=== PATIENT | male | born 1960 | race Caucasian/White ===

== ENCOUNTER 2016-08-07 10:55 | Outpatient (CLI) | payer BC, OTHER | END 2016-08-07 10:56 | disposition home or self-care (01) | DX: Z00.00 Encounter for general adult medical examination without abnormal findings (principal); E66.9 Obesity, unspecified; E78.5 Hyperlipidemia, unspecified; R73.01 Impaired fasting glucose; Z12.5 Encounter for screening for malignant neoplasm of prostate ==

== ENCOUNTER 2016-11-06 08:25 | Outpatient (CLI) | payer OTHER | END 2016-11-06 08:26 | disposition home or self-care (01) | DX: R74.8 Abnormal levels of other serum enzymes (principal); E11.9 Type 2 diabetes mellitus without complications; E78.5 Hyperlipidemia, unspecified ==

== ENCOUNTER 2017-01-28 15:49 | Outpatient (CLI) | payer OTHER | END 2017-01-28 15:50 | disposition home or self-care (01) | LOC: SC 15:49 | PROVIDERS: ATTEND Nurse Practitioner Family | DX: G47.33 Obstructive sleep apnea (adult) (pediatric) (principal) | CPT/HCPCS: 99212; 99214 ==

== ENCOUNTER 2017-08-15 08:00 | Outpatient (CLI) | payer OTHER ==
[2017-08-15 13:07] LABS: ALBUMIN 4.5 g/dL (3.2-5.5); ALBUMIN/GLOBULIN RATIO 1.6 (1.0-2.2); ALKALINE PHOSPHATASE 58 IU/L (42-121); ALT ALANINE AMINOTRANSFERASE 35 IU/L (10-60); AST ASPARTATE AMINOTRANSFERASE 27 IU/L (10-42); BILIRUBIN,TOTAL 0.3 mg/dL (0.2-1.0); BUN - BLOOD UREA NITROGEN 19 mg/dL (6-20); CALCIUM 9.4 mg/dL (8.5-10.3); CARBON DIOXIDE - CO2 23 mmol/L (21-32); CHLORIDE 104 mmol/L (101-111); CHOL/HDL RATIO 6.1 (<5.0); CHOLESTEROL 188 mg/dL; CREATININE 1.1 mg/dL (0.6-1.2); GFR - MDRD 69 (>89); GLUCOSE 118 mg/dL (70-100); HDL CHOLESTEROL 31 mg/dL; LDL CHOLESTEROL,CALCULATED 115 mg/dL; LDL/HDL RATIO 3.7 (<3.6); SODIUM 138 mmol/L (135-145); TOTAL PROTEIN 7.4 g/dL (6.7-8.2); VLDL CHOLESTEROL 42 mg/dL
[2017-08-15 13:36] LABS: HB2 TOTAL 16.9 g/dL; HEMOGLOBIN A1C 0.72 g/dL
== END 2017-08-15 08:01 | disposition home or self-care (01) ==
LOC: LAB.WCP 08:00
PROVIDERS: ATTEND Family Medicine
DX: R74.8 Abnormal levels of other serum enzymes (principal); E11.9 Type 2 diabetes mellitus without complications; E78.5 Hyperlipidemia, unspecified
CPT/HCPCS: 36415; 80053; 80061; 83036; 83721

== ENCOUNTER 2018-01-29 08:43 | Outpatient (CLI) | payer OTHER | END 2018-01-29 08:44 | disposition home or self-care (01) | LOC: SC 08:43 | PROVIDERS: ATTEND Nurse Practitioner Family | DX: G47.33 Obstructive sleep apnea (adult) (pediatric) (principal) | CPT/HCPCS: 99212; 99214 ==

== ENCOUNTER 2019-03-12 08:00 | Outpatient (CLI) | payer OTHER ==
[2019-03-12 12:00] LABS: BASOPHILS # (AUTO) 0.1 10^3/uL (0.0-0.1); BASOPHILS % (AUTO) 0.8 %; EOSINOPHILS # (AUTO) 0.1 10^3/uL (0.0-0.7); EOSINOPHILS % (AUTO) 1.7 %; HGB - HEMOGLOBIN 14.7 g/dL (14.0-18.0); LYMPHOCYTES # (AUTO) 3.5 10^3/uL (1.5-3.5); LYMPHOCYTES % (AUTO) 47.9 %; MEAN CORPUSCULAR HEMOGLOBIN 29.3 pg (27.0-31.0); MEAN CORPUSCULAR HGB CONC 33.3 g/dL (32.0-36.0); MEAN PLATELET VOLUME 10.3 fL (7.4-11.4); MONOCYTES # (AUTO) 0.5 10^3/uL (0.0-1.0); MONOCYTES % (AUTO) 6.3 %; NEUTROPHILS # (AUTO) 3.1 10^3/uL (1.5-6.6); NEUTROPHILS % (AUTO) 42.9 %; PLT - PLATELET COUNT 276 10^3/uL (130-450); RED BLOOD COUNT 5.02 10^6/uL (4.70-6.10); RED CELL DISTRIBUTION WIDTH 13.5 % (12.0-15.0); WHITE BLOOD COUNT 7.3 x10^3/uL (4.8-10.8)
[2019-03-12 12:10] LABS: ALBUMIN 4.1 g/dL (3.2-5.5); ALBUMIN/GLOBULIN RATIO 1.4 (1.0-2.2); ALKALINE PHOSPHATASE 52 IU/L (42-121); ALT ALANINE AMINOTRANSFERASE 51 IU/L (10-60); AST ASPARTATE AMINOTRANSFERASE 41 IU/L (10-42); BILIRUBIN,TOTAL 0.5 mg/dL (0.2-1.0); BUN - BLOOD UREA NITROGEN 17 mg/dL (6-20); CALCIUM 9.4 mg/dL (8.5-10.3); CARBON DIOXIDE - CO2 22 mmol/L (21-32); CHLORIDE 107 mmol/L (101-111); CHOL/HDL RATIO 5.7 (<5.0); CHOLESTEROL 183 mg/dL; GFR - MDRD 76 (>89); GLUCOSE 133 mg/dL (70-100); HDL CHOLESTEROL 32 mg/dL; LDL CHOLESTEROL,CALCULATED 116 mg/dL; LDL/HDL RATIO 3.6 (<3.6); SODIUM 140 mmol/L (135-145); TOTAL PROTEIN 7.1 g/dL (6.7-8.2); VLDL CHOLESTEROL 35 mg/dL
[2019-03-12 12:16] LABS: HB2 TOTAL 15.2 g/dL; HEMOGLOBIN A1C 0.73 g/dL; HEMOGLOBIN A1C % 6.5 % (4.6-6.2)
== END 2019-03-12 23:59 | disposition home or self-care (01) ==
LOC: LAB.N 08:00
PROVIDERS: ATTEND Family Medicine
DX: E11.9 Type 2 diabetes mellitus without complications (principal); E78.5 Hyperlipidemia, unspecified; R74.8 Abnormal levels of other serum enzymes; K21.9 Gastro-esophageal reflux disease without esophagitis
CPT/HCPCS: 36415; 80053; 80061; 83036; 83721; 84443; 85025

== ENCOUNTER 2019-03-17 08:51 | Outpatient (CLI) | payer OTHER ==
--- NOTE | 2019-03-17 09:40 | SLEEP CARE CONSULTATION ---
Information from patient questionnaire entered by Lilo Jauregui. I have reviewed and concur with the information entered by Lilo Jauregui. This document represents the service I personally performed and the decisions made by me, Emilee Escalante, RN, MSN, [employer]. History of Present Illness Previous diagnosis: Severe, Obstructive Sleep Apnea-Hypopnea Syndrome AHI: 59.6 Reason for CPAP/BiPAP follow up: annual Equipment type: CPAP Equipment obtained from: [facility] (having difficulty getting supplies so buying supplies online) Mask style: Nasal (Wisp) Mask brand: Respironics Backup mask available: Yes Last cushion change: December as unable to afford sooner CPAP Compliance Data - Data Reviewed with Patient Average duration of nightly device use: 7.7 Compliance rate %: 96.7 (180 days) Current pressure setting (cmH2O): 7-13 Humidity settin Average residual AHI: 1.9 Average large leak: 8 mins 57 secs Subjective Missed days of use due to: reports: travel (uses [employer] travel CPAP ), other Patient concerns: reports: nasal congestion (chronic but does not interfere with CPAP. / uses saline nasal spray as needed. ). denies: aerophagia, mask discomfort, air blowing in eyes, mask leak noise, condensation in mask/hose, dry mouth, nose, throat, epistaxis Observed to snore while using device: No (sleep separately) Current pressure setting perceived as: comfortable On therapy, patient: reports: sleeping better (cannot sleep without CPAP ), awakening more refreshed, being more awake and alert during the day, more rested overall ( but residual fatigue. ). denies: drowsiness while driving Initial [place] Sleepiness Scale score: 1 Current [place] Sleepiness Scale score: 3 Allergies and Home Medications Known drug allergies: Yes (penicillin) Allergy and home medication list: Ranitidine HCL 150mg tab one daily in the pm TUMS prn Review of Systems Review of systems same as previous: Yes Physical Exam Blood Pressure: 110/68 Cuff size: long Heart Rate: 88 O2 Saturation: 97 Height: 6 ft 2.5 in Weight (kg): 320 lb 3.2 oz Body Mass Index: 40.5 BMI Classification: Class 3 Impression and Plan 1. Obstructive Sleep Apnea-Hypopnea Syndrome, severe, with good treatment compliance and good apnea control. On CPAP therapy, the patient has better sleep quality and is more rested overall. He does have some residual fatigue and has had increased stress with changes at work. In addition, his weight has increased as well with stress. Both these factors can contribute fatigue as well as other medical conditions. He has appointment with his PCP this week and advised to discuss. I also discussed how continued weight gain could increase pressure requirements and advised to lose weight. He was advised to discuss a diet consultation with his PCP as well. His autoCPAP range should accommodate some weight loss. Symptoms to report for pressure adjustment discussed. 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 For his supply concerns, I discussed how his current insurance uses a different DME and I can transfer him. He agreed with plan. A transfer DWO will be completed. Patient advised to contact this office if further supply concerns. Patient's apnea severity and rationale for treatment to reduce apnea, improve sleep quality and reduce cardiovascular and cerebrovascular events was reviewed. * Continue autoCPAP pressure at 7-13 cmH2O * Transfer of care to [facility] ( patient now has [place] insurance) * CDL letter * Attempt to lose weight * Consider diet consultation. * Notify me if snoring with mask or feeling that the pressure is too much or too little * Return for follow up in 1 year , or sooner if concerns arise I spent 100% of this 33 minute visit face to face with the patient with greater than 50% of this was spent time counseling the patient and coordination of care.
[2019-03-17 09:41] VITALS: BP 110/68
== END 2019-03-17 08:52 | disposition home or self-care (01) ==
LOC: SC 08:51
PROVIDERS: ATTEND Nurse Practitioner Family
DX: G47.33 Obstructive sleep apnea (adult) (pediatric) (principal)
CPT/HCPCS: 99212; 99214

== ENCOUNTER 2019-05-04 08:51 | Outpatient (CLI) | payer OTHER ==
--- NOTE | 2019-05-04 12:37 | XRAY Report ---
Reason: GERD Procedure Date: 05/04/2019 Accession Number: [id number] / [id number] Procedure: FL - Esophogram CPT Code: FULL RESULT: EXAM: BARIUM ESOPHAGRAM EXAM DATE: 05/04/2019 11:00 AM. CLINICAL HISTORY: GERD. Chest pain COMPARISONS: XR CHEST PA AND LAT 09/25/2011 6:57 PM. TECHNIQUE: Routine double contrast esophagram. Fluoroscopy Time: 3 minutes 25 seconds. Number of Images: 18. FINDINGS: Swallowing Mechanism: Normal. No tracheal aspiration or penetration. Esophageal Motility: Normal peristaltic stripping wave. Mucosa: Normal. No ulcerations or masses. Gastroesophageal Junction: Normal. No hernia, stricture, or significant reflux. Other: A 13 mm barium tablet passes easily into the stomach. IMPRESSION: Normal barium esophagram. RADIA
== END 2019-05-04 08:52 | disposition home or self-care (01) ==
LOC: DI 08:51
PROVIDERS: ATTEND Family Medicine
DX: K21.9 Gastro-esophageal reflux disease without esophagitis (principal)
CPT/HCPCS: 74220

== ENCOUNTER 2019-10-12 14:20 | Emergency (ER) | payer OTHER ==
[2019-10-12 14:33] VITALS: BP 154/83
--- NOTE | 2019-10-12 14:48 | ED Physician Documentation ---
PD HPI SKIN - Stated complaint Stated Complaint: RT THUMB LAC - Chief complaint Chief Complaint: Laceration - History obtained from History obtained from: Patient (Pt was cutting vegetables with a clean knife and accidentally cut the tip of his right thumb. He washed it and held pressure at home but it continued to bleed for about 30 minutes so he presented to the ER. No other injuries. Reports normal sensation.) Review of Systems Constitutional: reports: Reviewed and negative Eyes: reports: Reviewed and negative Ears: reports: Reviewed and negative Nose: reports: Reviewed and negative Throat: reports: Reviewed and negative Cardiac: reports: Reviewed and negative Respiratory: reports: Reviewed and negative GI: reports: Reviewed and negative Skin: reports: Laceration (s) Musculoskeletal: reports: Reviewed and negative Neurologic: reports: Reviewed and negative PD PAST MEDICAL HISTORY - Allergies Allergies/Adverse Reactions: Allergies Allergy/AdvReac Type Severity Reaction Status Date / Time Penicillins Allergy Rash Verified 10/12/19 14:27 - Social History Does the pt smoke?: No Smoking Status: Never smoker Does the pt drink ETOH?: No Does the pt have substance abuse?: No - Immunizations Immunizations are current?: Yes - POLST Patient has POLST: No PD ED PE NORMAL - Vitals Vital signs reviewed: Yes - General General: Alert and oriented X 3, No acute distress, Well developed/nourished - HEENT HEENT: Atraumatic - Neck Neck: Supple, no meningeal sign - Cardiac Cardiac: RRR, No murmur, No gallop, No rub, Strong equal pulses - Respiratory Respiratory: No respiratory distress, Clear bilaterally - Abdomen Abdomen: Normal bowel sounds, Soft, Non tender, Non distended, No organomegaly - Derm Derm: Normal color, Warm and dry, Other (1/2 x 1/2 cm avulsion of the tip of the right thumbpad. Small vessles oozing. Sensation, color intact. 2+ radial pulses. ) Results - Vitals Vitals: Vital Signs - 24 hr 10/12/19 14:27 Temperature 36.7 C Heart Rate 95 Respiratory 16 Rate Blood Pressure 154/83 H O2 Saturation 96 Oxygen O2 Source Room air Procedures - Laceration (location) right thumb Wound type: Flap, Clean Neurovascular status: Sensory intact, Motor intact, Vascular intact Anesthesia: Lidocaine 1% Wound Preparation: Hibiclens, Irrigated copiously NS Skin layer closure: Nylon, Size #-0 - enter number (5), Sutures - enter # (3 vicryl) Other: Patient tolerated well, No complications, Dressing applied, Tetanus UTD Complexity: Simple PD MEDICAL DECISION MAKING - ED course Complexity details: re-evaluated patient, d/w patient ED course: Pt presentsed with small lac on the right thumb. The area was irrigated copiously. After informed verbal consent obtained the thumb was locally anesthetized with 1mnl of 1% lidocaine and the bleeding vessels were tied off with 3 #5.0 vicryl. A non-stick dressing was applied. Bleeding controlled. Home wound care instructions provided and return precautions discussed. Departure - Departure Disposition: Home, Self Care Clinical Impression: Laceration Condition: Good Instructions: ED Laceration Hand, ED Laceration Sure Close Comments: You sustained an avulsion of the tip of the right thumb. I placed dissolveable sutures to help stop the bleeding, but there is no skin to close the wound. The wound will heal from the bottom up. Keep clean and dry, soap and water is fine but do not soak. The sutures will dissolve in 10-14 days. If you have any swelling, redness, increased pain, or purulent drainage, return for evaluation. Discharge Date/Time: 10/12/19 15:08
== END 2019-10-12 15:15 | disposition home or self-care (01) ==
LOC: ED 14:20
DX: S61.011A Laceration without foreign body of right thumb without damage to nail, initial encounter (principal); W26.0XXA Contact with knife, initial encounter; Y93.G1 Activity, food preparation and clean up
CPT/HCPCS: 12001; 99281; 99284

== ENCOUNTER 2020-03-29 09:32 | Outpatient (CLI) | payer OTHER ==
--- NOTE | 2020-03-29 10:22 | SLEEP CARE CONSULTATION ---
Information from patient questionnaire entered by Aida Patton. I have reviewed and concur with the information entered by Aida Patton. This document represents the service I personally performed and the decisions made by , Tory Gould ARNP. History of Present Illness Service Date and Time: 03/29/2020 09 Previous diagnosis: Severe, Obstructive Sleep Apnea-Hypopnea Syndrome AHI: 59.6 Reason for follow up: annual (Last seen 03/2019) Equipment type: CPAP Mask style: Nasal (Wisp) Mask brand: [employer] Backup mask available: Yes (old mask) Last cushion change: 2.5+ months Prior sleep studies: Yes Year and Where: 2012 [facility] Type of Sleep Study: Polysomnography HPI additional information: JADEN ECHEVERRIA was diagnosed to have severe, AHI 59.6, obstructive sleep apnea- hypopnea syndrome and returned today for CPAP therapy annual follow-up. 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 CPAP Compliance Data - Data Reviewed with Patient Average duration of nightly device use: 7 hrs 41 mins Compliance rate %: 98.3 Current pressure setting (cmH2O): 7-13 Average residual AHI: 2.7 Central apnea: 0.0 Obstructive apnea: 0.5 Hypopnea: 2.1 Average large leak: 41 mins 12 secs Subjective Patient concerns: denies: aerophagia, mask discomfort, air blowing in eyes, mask leak noise, condensation in mask/hose, nasal congestion, dry mouth, nose, throat, epistaxis, other Observed to snore while using device: No Current pressure setting perceived as: comfortable On therapy, patient: reports: sleeping better, awakening more refreshed, being more awake and alert during the day, more rested overall. denies: drowsiness while driving Initial [place] Sleepiness Scale score: 3 (in 2013) Current [place] Sleepiness Scale score: 2 Allergies and Home Medications Drug allergies reviewed: Yes (penicillins) Home medication list reviewed: Yes (new medication for heartburn for last year) Review of Systems Review of systems same as previous: Yes (no changes) Physical Exam Heart Rate: 81 O2 Saturation: 95 Height: 6 ft 2 in Weight: 324 lb Body Mass Index: 41.5 BMI Classification: Morbidly Obese Impression and Plan 1. Obstructive Sleep Apnea-Hypopnea Syndrome, severe, with good treatment compliance and good apnea control. On CPAP therapy, the patient has better sleep quality and is more rested overall. DOT compliance letter was completed and copy given to patient along with a copy of his compliance information from download. Patient is not having any issues with his machine or mask. His is compliant and may follow up for his annual next year. Patient's apnea severity and rationale for treatment to reduce apnea, improve sleep quality and reduce cardiovascular and cerebrovascular events was reviewed. I also reviewed the benefit of consistent device use of CPAP for his gastric reflux. * Continue auto CPAP pressure at 7-13 cmH2O * Notify me if snoring with mask or feeling that the pressure is too much or too little * Attempt to lose weight * Call this office if any problems using CPAP * Return for follow up in 1 year, or sooner if concerns arise Visit Type: In Office Time Spent with Patient (minutes): 23 Provider Statement: I spent 100% of the Face to Face Visit with the patient with greater than 50% spent counseling the patient and coordination of care.
== END 2020-03-29 09:33 | disposition home or self-care (01) ==
LOC: SC 09:32
PROVIDERS: ATTEND Nurse Practitioner Family
DX: G47.33 Obstructive sleep apnea (adult) (pediatric) (principal); E66.01 Morbid (severe) obesity due to excess calories; Z68.41 Body mass index [BMI] 40.0-44.9, adult
CPT/HCPCS: 99212; 99213

== ENCOUNTER 2020-04-25 19:13 | Outpatient (CLI) | payer OTHER | END 2020-04-25 19:14 | disposition home or self-care (01) | LOC: COV 19:13 | PROVIDERS: ATTEND Family Medicine | DX: R05 Cough (principal); Z20.828 Contact with and (suspected) exposure to other viral communicable diseases; R53.83 Other fatigue; J02.9 Acute pharyngitis, unspecified; M79.10 Myalgia, unspecified site; R43.8 Other disturbances of smell and taste ==

== ENCOUNTER 2021-04-10 08:35 | Outpatient (CLI) | payer OTHER ==
[2021-04-10 09:10] VITALS: BP 153/83
--- NOTE | 2021-04-10 09:10 | SLEEP CARE CONSULTATION ---
Information from patient questionnaire entered by Loreta Pathak. I have reviewed and concur with the information entered by Loreta Pathak. This document represents the service I personally performed and the decisions made by , Tory Gould ARNP. History of Present Illness Service Date and Time: 04/10/2021 0835 Previous diagnosis: Severe, Obstructive Sleep Apnea-Hypopnea Syndrome AHI: 59.6 Reason for follow up: annual Equipment type: CPAP Equipment obtained from: Other (Patient is purchasing from [employer]) Mask style: Nasal (Wisp) Mask brand: Respironics Backup mask available: Yes (old mask) Last cushion change: last weekend Prior sleep studies: Yes Year and Where: 2012 [facility] Type of Sleep Study: Polysomnography HPI additional information: JADEN ECHEVERRIA was diagnosed to have severe, AHI 59.6, obstructive sleep apnea- hypopnea syndrome and returned today for CPAP therapy annual follow-up. Sleep Study - Results Type of Sleep Study: Polysomnography Prior sleep studies: Yes Year and Where: 2012 [facility] CPAP Compliance Data - Data Reviewed with Patient Average duration of nightly device use: 7 hours 44 minutes Compliance rate %: 95.6 Current pressure setting (cmH2O): 7-13 Humidity settin Average residual AHI: 2.1 Average large leak: 3 minutes 18 seconds Subjective Missed days of use due to: reports: travel (uses travel unit) Patient concerns: denies: aerophagia, mask discomfort, air blowing in eyes, mask leak noise, condensation in mask/hose, nasal congestion, dry mouth, nose, throat, epistaxis, other Observed to snore while using device: No Current pressure setting perceived as: comfortable On therapy, patient: reports: sleeping better, awakening more refreshed, being more awake and alert during the day, more rested overall, other (don't sleep if he doesn't use it). denies: drowsiness while driving Initial [place] Sleepiness Scale score: 3 (in 2013) Current [place] Sleepiness Scale score: 2 Allergies and Home Medications Home medication list reviewed: Yes Allergy and home medication list: Metformin HCI ER 750 mg Pioglitaozone HCI 15 mg Pantoprazole Review of Systems Review of systems same as previous: No (some high blood pressures, no meds yet) Physical Exam Blood Pressure: 153/83 Cuff size: wrist Heart Rate: 85 O2 Saturation: 97 Height: 6 ft 2 in Weight: 324 lb Body Mass Index: 41.5 BMI Classification: Morbidly Obese Impression and Plan 1. Obstructive Sleep Apnea-Hypopnea Syndrome, severe, with excellent treatment compliance and good apnea control. On CPAP therapy, the patient has better sleep quality and is more rested overall. He has no issues and is satisfied with current pressure settings. He has a Remstar from [employer] that he got in 2013. He heard about the recall and would like to update his device. He had been getting supplies from [employer] due to a high deductible, but he now has a different insurance that should cover a new device. He has used [employer] in the past. Patient denies any black particles seen in machine or hoses, any unusual odors coming from device. Patient has not experienced any physical symptoms such as upper airway irritation, headache, skin or eye irritation, asthma, nausea/vomiting, difficulty breathing or chest pain. Patient informed that they may use an inline CPAP filter that they can obtain online to reduce chance of any particles being inhaled or ingested. We discussed thoroughly the health risks of not using the CPAP versus continuing use with the filter in place. If patient is not able to sleep due to waking up choking, gasping for air or other respiratory distress that they may decide to continue using it until it is either replaced or repaired. Since the patients current machine is at least 5 years old the patient is opting to update their device with a device that is not on the recall. Patient has not been trying to lose weight this year. Patient was encouraged to lose weight for their overall health and to reduce apneas. Patient voiced understanding and agreement with plan. Patient's apnea severity and rationale for treatment to reduce apnea, improve sleep quality and reduce cardiovascular and cerebrovascular events was reviewed. I also reviewed the benefit of consistent device use of CPAP for gastric reflux. * Continue auto CPAP pressure at 7-13 cmH2O * Update device * Update supplies as needed * Notify me if snoring with mask or feeling that the pressure is too much or too little * Attempt to lose weight * Call this office if any problems using CPAP * Return for follow up one month after getting new device, or sooner if concerns arise Counseling Topics: Spare mask, Weight loss health impact Visit Type: In Office Time Spent with Patient (minutes): 24 Provider Statement: I spent 100% of the Face to Face Visit with the patient with greater than 50% spent counseling the patient and coordination of care.
== END 2021-04-10 08:36 | disposition home or self-care (01) ==
LOC: SC 08:35
PROVIDERS: ATTEND Nurse Practitioner Family
DX: G47.33 Obstructive sleep apnea (adult) (pediatric) (principal); E66.01 Morbid (severe) obesity due to excess calories; Z68.41 Body mass index [BMI] 40.0-44.9, adult
CPT/HCPCS: 99212; 99213

== ENCOUNTER 2022-08-27 11:21 | Outpatient (CLI) | payer MEDICAID ==
--- NOTE | 2022-08-27 12:02 | SLEEP CARE CONSULTATION ---
Information from patient questionnaire entered by Kristine Acharya. I have reviewed and concur with the information entered by Kritsine Acharya. This document represents the service I personally performed and the decisions made by , Tory Gould ARNP. History of Present Illness Service Date and Time: 08/27/2022 1121 Previous diagnosis: Severe, Obstructive Sleep Apnea-Hypopnea Syndrome AHI: 59.6 Reason for follow up: annual (LAST SEEN 04/2021) Equipment type: CPAP (Resmed Airsense 11; s/u 05/2021) Equipment obtained from: [employer] (getting supplies) Mask style: Nasal Mask brand: Resmed (N20) Backup mask available: Yes (old mask) Last cushion change: 2 + weeks Prior sleep studies: Yes Year and Where: 2012 [facility] Type of Sleep Study: Polysomnography HPI additional information: JADEN ECHEVERRIA was diagnosed to have severe, AHI 59.6, obstructive sleep apnea- hypopnea syndrome and returned today for CPAP therapy annual follow-up. Sleep Study - Results Type of Sleep Study: Polysomnography Prior sleep studies: Yes Year and Where: 2012 [facility] CPAP Compliance Data - Data Reviewed with Patient Average duration of nightly device use: 7 hours 46 minutes Compliance rate %: 99 (07/28/2022-08/26/2022; 179/180 days used) Current pressure setting (cmH2O): 7-13 Average residual AHI: 2.0 Central apnea: 0.1 Obstructive apnea: 1.3 Subjective Missed days of use due to: reports: illness (Covid in Jun/Jul) Patient concerns: denies: aerophagia, mask discomfort, air blowing in eyes, mask leak noise, condensation in mask/hose, nasal congestion, dry mouth, nose, throat, epistaxis Observed to snore while using device: No Current pressure setting perceived as: comfortable On therapy, patient: reports: sleeping better, awakening more refreshed, being more awake and alert during the day, more rested overall. denies: drowsiness while driving Initial [place] Sleepiness Scale score: 3 (in 2012) Current [place] Sleepiness Scale score: 3 (08/27/22) Allergies and Home Medications Drug allergies reviewed: Yes (pencillin) Home medication list reviewed: Yes (Metformin, Pioglitazone, Pantoprazole, Losartan) Review of Systems Review of systems same as previous: Yes (no changes) Physical Exam Vital signs obtained and entered by: KRISTINE Oshea MA Blood Pressure: 120/76 (LEFT ARM) Cuff size: regular Heart Rate: 88 O2 Saturation: 98 Height: 6 ft 2 in Weight: 341 lb 3.2 oz Body Mass Index: 43.8 BMI Classification: Morbidly Obese Impression and Plan 1. Obstructive Sleep Apnea-Hypopnea Syndrome, severe, with good treatment compliance and good apnea control. On CPAP therapy, the patient has better sleep quality and is more rested overall. Patient has a ResMed Airsense 11 that was set up in May 2021. He likes his device but did not come in for a compliance visit within the first 90 days. He states that he did not know he was supposed to have this compliance visit. He is definitely compliant and has been doing well with his Resmed device. Patient has significant improvement of their sleep apnea and is satisfied with current CPAP therapy. Patient denies problems with oral dryness, nasal congestion, epistaxis, skin irritation or aerophagia. Patient's apnea severity and rationale for treatment to reduce apnea, improve sleep quality and reduce cardiovascular and cerebrovascular ev ents was reviewed. I also reviewed the benefit of consistent device use of CPAP for gastric reflux. 2. Obesity, unspecified. Currently patients BMI is 43.8. Obesity increases the risk of apnea, CPAP pressure requirements and overall health risks especially cardiovascular and diabetes. Thus patient is advised to lose weight. * Continue auto CPAP pressure at 7-12 cmH2O * Update supplies * Notify me if snoring with mask or feeling that the pressure is too much or too little * Attempt to lose weight * Call this office if any problems using CPAP * Return for follow up in 1 year, or sooner if concerns arise Counseling Topics: Spare mask, Weight loss health impact Visit Type: In Office Time Spent with Patient (minutes): 22 Provider Statement: I spent 100% of the Face to Face Visit with the patient with greater than 50% spent counseling the patient and coordination of care.
[2022-08-27 12:03] VITALS: BP 120/76
== END 2022-08-27 11:22 | disposition home or self-care (01) ==
LOC: SC 11:21
PROVIDERS: ATTEND Nurse Practitioner Family
DX: G47.33 Obstructive sleep apnea (adult) (pediatric) (principal); E66.01 Morbid (severe) obesity due to excess calories; Z68.41 Body mass index [BMI] 40.0-44.9, adult
CPT/HCPCS: 99212; 99213

== ENCOUNTER 2023-04-28 15:57 | Outpatient (CLI) | payer MEDICAID ==
--- NOTE | 2023-04-28 17:57 | XRAY Report ---
PROCEDURE: Hips 2V BILAT INDICATIONS: HIP, JOINT PAIN RIGHT TECHNIQUE: AP view of the pelvis and one view of the left and one view of the right hips. COMPARISON: None. FINDINGS: Bones: No fractures or dislocations. Mild joint space narrowing of the bilateral hips. No suspiciou s bony lesions. Soft tissues: No suspicious soft tissue calcifications or masses. IMPRESSION: 1. No acute osseous abnormality. If there is high clinical suspicion for a radiographically occult fr acture, consider cross-sectional imaging for further evaluation. 2. Mild bilateral hip joint space narrowing. Reviewed by: Pedro Castano MD on 04/28/2023 5:56 PM PDT Approved by: Pedro Castano MD on 04/28/2023 5:56 PM PDT Station ID: [id number]
--- NOTE | 2023-04-28 17:59 | XRAY Report ---
PROCEDURE: Lumbar Spine 2 View INDICATIONS: HIP, JOINT PAIN RIGHT,BACK PAIN LUMBAR TECHNIQUE: 3 views of the lumbar spine were acquired. COMPARISON: None. FINDINGS: Bones: 5 [id number] vertebrae are present. There is normal bony alignment. No vertebral body compression fractures or traumatic subluxation. Vertebral body height and disc spaces are maintained. Mild multilevel facet arthropathy, notably at L4-5 and L5-S1. No suspicious bony lesions. Soft tissues: Overlying bowel gas pattern is normal. No suspicious soft tissue calcifications. IMPRESSION: 1. No acute fracture or traumatic subluxation of the lumbar spine. 2. Mild multilevel facet arthropathy, notably at L4-5 and L5-S1. Reviewed by: Pedro Castano MD on 04/28/2023 5:57 PM PDT Approved by: Pedro Castano MD on 04/28/2023 5:57 PM PDT Station ID: [id number]
--- NOTE | 2023-04-28 18:19 | XRAY Report ---
PROCEDURE: Thoracic Spine 3 View INDICATIONS: HIP, JOINT PAIN RIGHT,BACK PAIN LUMBAR, THROARCIC TECHNIQUE: 3 views of the thoracic spine were acquired. COMPARISON: None. FINDINGS: Bones: No acute fracture or genetic subluxation. Vertebral body height is maintained. Mild multilevel disc height loss. No suspicious bony lesions. 12 pairs of ribs are noted, and appear intact where v isualized. Soft tissues: No paravertebral stripe thickening. Basilar atelectasis. Normal mediastinal contour. IMPRESSION: 1.No acute fracture or traumatic subluxation. 2.Mild multilevel degenerative changes of the spine. Reviewed by: Pedro Castano MD on 04/28/2023 6:18 PM PDT Approved by: Pedro Castano MD on 04/28/2023 6:18 PM PDT Station ID: [id number]
== END 2023-04-28 15:58 | disposition home or self-care (01) ==
LOC: DI 15:57
PROVIDERS: ATTEND Internal Medicine
DX: M47.814 Spondylosis without myelopathy or radiculopathy, thoracic region (principal); M47.816 Spondylosis without myelopathy or radiculopathy, lumbar region; M47.817 Spondylosis without myelopathy or radiculopathy, lumbosacral region; M16.0 Bilateral primary osteoarthritis of hip

== ENCOUNTER 2023-05-04 14:57 | Outpatient (CLI) | payer MEDICAID ==
--- NOTE | 2023-05-04 19:12 | Ultrasound Report ---
PROCEDURE: Retroperitoneal INDICATIONS: FLANK PAIN TECHNIQUE: Real-time scanning was performed of the retroperitoneal organs, with image documentation. COMPARISON: None. FINDINGS: Kidneys: Kidneys are normal in size. Right kidney measures 12.2 cm long; left kidney measures 12.4 cm long. Right renal cortical thickness is 1.0 cm; left renal cortical thickness is 1.1 cm. No karen d masses, hydronephrosis, or nephrolithiasis. Bladder: Pre-void bladder volume is 243 mL. Post-void residual is 19 mL. Pre-void images demonstra te no intraluminal masses or stones. On pre-void images, both ureteral jets are noted with color Dop pler interrogation. (Of note, ureteral jets may not be detectable in up to 25% of cases due to insuf ficient differences in specific gravity between ureteral and bladder urine). Miscellaneous: No free abdominal fluid. Prostatomegaly, measuring 100 mL. IMPRESSION: No hydronephrosis or significant urinary tension. Prostatomegaly. Reviewed by: Dorian Corado on 05/04/2023 7:10 PM PDT Approved by: Dorian Corado on 05/04/2023 7:10 PM PDT Station ID: [id number]
== END 2023-05-04 14:58 | disposition home or self-care (01) ==
LOC: DI 14:57
PROVIDERS: ATTEND Internal Medicine
DX: R10.9 Unspecified abdominal pain (principal); N40.0 Benign prostatic hyperplasia without lower urinary tract symptoms

== ENCOUNTER 2023-08-27 07:33 | Outpatient (CLI) | payer MEDICAID | END 2023-08-27 07:34 | disposition home or self-care (01) | LOC: LAB.R 07:33 | PROVIDERS: ATTEND Physician Assistant | DX: K52.9 Noninfective gastroenteritis and colitis, unspecified (principal) | CPT/HCPCS: 87045; 87046; 87177; 87209; 87427; 87493 ==

== ENCOUNTER 2023-08-28 10:50 | Outpatient (CLI) | payer MEDICAID ==
--- NOTE | 2023-08-28 11:24 | Sleep Patient Instructions ---
Sleep Center Visit Summary - Patient Visit Information Reason for Visit: Annual follow-up - Patient Instructions Additional Instructions: You will continue with CPAP therapy with pressure set at 7-13 cmH2O. A supply prescription will be updated with your DME. We encourage you to continue to try to lose weight. Please follow up with the sleep care office in 1 year. - Clinic Information Contact: [facility] [address] [place] [address] [email or web address] T: [phone]
--- NOTE | 2023-08-28 11:29 | SLEEP CARE CONSULTATION ---
Information from patient questionnaire entered by Kristine Acharya. I have reviewed and concur with the information entered by Kristine Acharya. This document represents the service I personally performed and the decisions made by , Tory Gould ARNP. History of Present Illness Service Date and Time: 08/28/2023 1050 Previous diagnosis: Severe, Obstructive Sleep Apnea-Hypopnea Syndrome AHI: 59.6 (2012) Reason for follow up: annual (LAST SEEN 08/2022) Equipment type: CPAP (Resmed Airsense 11; s/u 05/2021) Equipment obtained from: [employer] ([employer]) Mask style: Nasal Mask brand: Resmed (N20, medium cushion) Backup mask available: Yes Last cushion change: couple weeks Prior sleep studies: Yes Year and Where: 2012 [facility] Type of Sleep Study: Polysomnography HPI additional information: JADEN ECHEVERRIA was diagnosed to have severe, AHI 59.6, obstructive sleep apnea- hypopnea syndrome and returned today for CPAP therapy annual follow-up. Sleep Study - Results Type of Sleep Study: Polysomnography Prior sleep studies: Yes Year and Where: 2012 [facility] CPAP Compliance Data - Data Reviewed with Patient Average duration of nightly device use: 7 HRS 30 MINS Compliance rate %: 93 (08/26/22-08/25/23; 340/365 days used) Current pressure setting (cmH2O): 7-13 Average residual AHI: 1.7 Central apnea: 0.1 Obstructive apnea: 1 Hypopnea: 0.5 Average large leak: 3.7 L/min Subjective Missed days of use due to: reports: travel (using travel CPAP) Patient concerns: denies: aerophagia, mask discomfort, air blowing in eyes, mask leak noise, condensation in mask/hose, nasal congestion, dry mouth, nose, throat, epistaxis Observed to snore while using device: No Current pressure setting perceived as: comfortable On therapy, patient: reports: sleeping better, awakening more refreshed, being more awake and alert during the day, more rested overall. denies: drowsiness while driving Initial [place] Sleepiness Scale score: 3 (in 2013) Current [place] Sleepiness Scale score: 2 Allergies and Home Medications Known drug allergies: Yes (as listed) Drug allergies reviewed: Yes Home medication list reviewed: Yes (no changes) Allergy and home medication list: Allergies Penicillins Allergy (Verified 08/26/23 13:17) Rash Review of Systems Review of systems same as previous: Yes (no changes) Physical Exam Vital signs obtained and entered by: TORY CORONADO Blood Pressure: 129/84 Cuff size: long (right arm) Heart Rate: 78 O2 Saturation: 95 Height: 6 ft 2 in Weight: 335 lb 9.6 oz Weight change since last visit: 6 lb loss Body Mass Index: 43.0 BMI Classification: Morbidly Obese Impression and Plan 1. Obstructive Sleep Apnea-Hypopnea Syndrome, severe, with good treatment compliance and good apnea control. On CPAP therapy, the patient has better sleep quality and is more rested overall. Patient has significant improvement of their sleep apnea and is satisfied with current CPAP therapy. Patient denies problems with oral dryness, nasal congestion, epistaxis, skin irritation or aerophagia. Patient's apnea severity and rationale for treatment to reduce apnea, improve sleep quality and reduce cardiovascular and cerebrovascular events was reviewed. I also reviewed the benefit of consistent device use of CPAP for gastric reflux. 2. Obesity, unspecified. Currently patients BMI is 43. He has lost weight since last appointment. Obesity increases the risk of apnea, CPAP pressure requirements and overall health risks especially cardiovascular and diabetes. Thus patient is advised to continue to try to lose weight. * Continue auto CPAP pressure at 7-13 cmH2O * Update supply prescription * Notify me if snoring with mask or feeling that the pressure is too much or too little * Attempt to lose weight * Call this office if any problems using CPAP * Return for follow up in 12 months, or sooner if concerns arise Counseling Topics: Spare mask, Weight loss health impact Prescriptions: Device supplies Follow up with Sleep Care in: 1 year Visit Type: In Office Time Spent with Patient (minutes): 20 Provider Statement: I spent 100% of the Face to Face Visit with the patient with greater than 50% spent counseling the patient and coordination of care.
[2023-08-28 11:32] VITALS: BP 129/84; O2SAT 95
== END 2023-08-28 10:51 | disposition home or self-care (01) ==
LOC: SC 10:50
PROVIDERS: ATTEND Nurse Practitioner Family
DX: G47.33 Obstructive sleep apnea (adult) (pediatric) (principal); E66.01 Morbid (severe) obesity due to excess calories; Z68.41 Body mass index [BMI] 40.0-44.9, adult
CPT/HCPCS: 87045; 87046; 87177; 87209; 87427; 87493; 99212; 99213

== ENCOUNTER 2023-09-21 09:00 | Outpatient (CLI) | payer MEDICAID ==
--- NOTE | 2023-09-21 12:54 | Ultrasound Report ---
PROCEDURE: Abdomen Limited INDICATIONS: CHRONIC DIARRHEA TECHNIQUE: Real-time focused scanning was performed of the abdomen, with image documentation. COMPARISONS: Renal ultrasound from the same date. FINDINGS: Liver: Significant increase echogenicity of the liver consistent with diffuse hepatic steatosis. Hep atomegaly. Liver measures 21.3 cm. There is hepatopedal flow in the main portal vein. Gallbladder: Unremarkable. Biliary ducts: Intrahepatic bile ducts are non-dilated. Extrahepatic bile duct caliber measures 7 m m. Normal is 6-7 mm or less in diameter, or 10 mm or less post-cholecystectomy. Pancreas: Visualized portions of the pancreas are sonographically normal. Right kidney: Normal in size and echotexture. Right kidney measures 13.0 cm long. Possible right chao al stone. Please see other report. No solid masses. No complex renal cystic lesions which require fol low-up. Aorta: Visualized aorta is normal in caliber at less than 3 cm. IVC: Intrahepatic inferior vena cava is patent. Miscellaneous: No free abdominal fluid. IMPRESSION: 1. Diffuse hepatic steatosis, hepatomegaly. 2. No gallstone disease. Reviewed by: John Bains MD on 09/21/2023 12:53 PM PDT Approved by: John Bains MD on 09/21/2023 12:53 PM PDT Station ID: [id number]
--- NOTE | 2023-09-21 12:56 | Ultrasound Report ---
PROCEDURE: Renal (Retroperitoneal) INDICATIONS: CHRONIC DIARRHEA TECHNIQUE: Real-time scanning was performed of the retroperitoneal organs, with image documentation. COMPARISON: None. FINDINGS: Kidneys: Kidneys are normal in size. Right kidney measures 13.0 cm long; left kidney measures 13.4 cm long. Right renal cortical thickness is 1.2 cm; left renal cortical thickness is 1.6 cm. No solid mass or hydronephrosis. Probable nonobstructing 8 x 13 x 8 mm right renal stone. Bladder: Pre-void bladder volume is 24.8 mL. Post-void residual is 41.7 mL. Pre-void images demonstrate no intralumin al masses or stones. Enlarged prostate measuring 5.3 x 5.3 x 5.4 cm On pre-void images, bilateral ur eteral jets are noted with color Doppler interrogation. (Of note, ureteral jets may not be detectabl e in up to 25% of cases due to insufficient differences in specific gravity between ureteral and blad amber urine). Miscellaneous: No free abdominal fluid. IMPRESSION: 1. Probable 8 x 13 x 8 mm right renal stone. 2. Normal-sized kidneys without hydronephrosis. 3. Prostatomegaly with mild post void residual. Reviewed by: John Bains MD on 09/21/2023 12:55 PM PDT Approved by: John Bains MD on 09/21/2023 12:55 PM PDT Station ID: [id number]
== END 2023-09-21 09:01 | disposition home or self-care (01) ==
LOC: DI 09:00
PROVIDERS: ATTEND Nurse Practitioner
DX: K52.9 Noninfective gastroenteritis and colitis, unspecified (principal); B96.23 Unspecified Shiga toxin-producing Escherichia coli [E. coli] [STEC] as the cause of diseases classified elsewhere; N40.0 Benign prostatic hyperplasia without lower urinary tract symptoms; K76.0 Fatty (change of) liver, not elsewhere classified; R16.0 Hepatomegaly, not elsewhere classified

== ENCOUNTER 2023-09-25 07:54 | Outpatient (CLI) | payer MEDICAID ==
[2023-09-25 11:38] LABS: HCT - HEMATOCRIT 43.3 % (42.0-52.0); HGB - HEMOGLOBIN 13.8 g/dL (14.0-18.0); MEAN CORPUSCULAR HGB CONC 31.9 g/dL (32.0-36.0); MEAN PLATELET VOLUME 9.6 fL (7.4-11.4); RED BLOOD COUNT 4.92 10^6/uL (4.70-6.10); WHITE BLOOD COUNT 9.2 x10^3/uL (4.8-10.8)
[2023-09-25 11:56] LABS: ALBUMIN 4.1 g/dL (3.2-5.5); ALBUMIN/GLOBULIN RATIO 1.5 (1.0-2.2); BILIRUBIN,TOTAL 0.4 mg/dL (0.2-1.0); CALCIUM 9.8 mg/dL (8.5-10.3); CREATININE 0.9 mg/dL (0.6-1.3); TOTAL PROTEIN 6.8 g/dL (6.4-8.9)
[2023-09-25 12:06] LABS: THYROID STIMULATING HORMONE 1.43 uIU/mL (0.34-5.60)
== END 2023-09-25 07:55 | disposition home or self-care (01) ==
LOC: LAB.N 07:54
PROVIDERS: ATTEND Nurse Practitioner Family
DX: R19.7 Diarrhea, unspecified (principal); Z12.11 Encounter for screening for malignant neoplasm of colon; K21.9 Gastro-esophageal reflux disease without esophagitis
CPT/HCPCS: 36415; 80053; 81599; 82784; 83993; 84443; 85027; 86140; 86364; 87045; 87046; 87427

== ENCOUNTER 2024-02-12 07:51 | Outpatient (CLI) | payer MEDICAID ==
[2024-02-12 12:04] LABS: CALCIUM 9.7 mg/dL (8.5-10.3); CREATININE 0.9 mg/dL (0.6-1.3); POTASSIUM 3.9 mmol/L (3.5-4.5)
[2024-02-12 12:21] LABS: ESTIMATED AVERAGE GLUCOSE 128 mg/dL (70-100); HEMOGLOBIN A1c% 6.1 % (4.27-6.07)
== END 2024-02-12 07:52 | disposition home or self-care (01) ==
LOC: LAB.N 07:51
PROVIDERS: ATTEND Internal Medicine
DX: E11.9 Type 2 diabetes mellitus without complications (principal); B96.23 Unspecified Shiga toxin-producing Escherichia coli [E. coli] [STEC] as the cause of diseases classified elsewhere
CPT/HCPCS: 36415; 80048; 83036; 87045; 87046; 87427

== ENCOUNTER 2024-02-24 07:57 | Outpatient (CLI) | payer MEDICAID | END 2024-02-24 07:58 | disposition home or self-care (01) | LOC: LAB.R 07:57 | PROVIDERS: ATTEND Internal Medicine | DX: Z87.442 Personal history of urinary calculi (principal) | CPT/HCPCS: 81599; 84560 ==

== ENCOUNTER 2024-02-25 08:04 | Outpatient (CLI) | payer MEDICAID ==
[2024-02-27 15:10] LABS: CALCIUM URINE 11.6 mg/dL (Not Estab.)
== END 2024-02-25 08:05 | disposition home or self-care (01) ==
LOC: LAB.R 08:04
PROVIDERS: ATTEND Internal Medicine
DX: Z87.442 Personal history of urinary calculi (principal)
CPT/HCPCS: 81599; 82340; 82507; 83945